=== PATIENT | male | born 1975 | race Two or more races ===

== ENCOUNTER 2020-04-04 14:49 | Outpatient (CLI) | payer BC ==
--- NOTE | 2020-04-04 15:27 | ULT ---
Scrotal sonogram with duplex evaluation HISTORY: Left scrotal mass. FINDINGS: The right testicle is 4.6 cm length and the left is 4.4 cm. Each has a normal appearance wi th good color and spectral Doppler flow. Tiny cyst associated with the right epididymal body is 0.4 cm. Within the left side of the scrotum, distended venous structures becomes more dilated upon Valsalva m aneuver. Small amount of fluid is present within the left side of the scrotum. IMPRESSION : No evidence of testicular mass or torsion. 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 Small left hydrocele.
== END 2020-04-04 14:50 | disposition home or self-care (01) ==
LOC: BICULT 14:49
PROVIDERS: ATTEND Family Medicine
DX: N50.89 Other specified disorders of the male genital organs (principal); I86.1 Scrotal varices; N43.3 Hydrocele, unspecified
CPT/HCPCS: 76870; 93976